=== PATIENT | female | born 1965 | race Caucasian/White ===

== ENCOUNTER 2017-06-29 15:10 | Inpatient (IN) | payer MEDICARE, MEDICAID ==
[~2017-06-29] VITALS: Ht 167.6 cm; Wt 75.0 kg
[~2017-06-29 15:10] MED LIST: ESTR0.5T PO; [UNRECOGNIZED DRUG - CODE] PO
[2017-06-29 16:15] VITALS: BP 154/101
[2017-06-29] MEDS ORDERED: PARO20TA24 PO (17:01)
[2017-06-29 17:55] VITALS: BP 155/102
[2017-06-29] MEDS: AmLODIPine BESYLATE 5 MG TABLET PO SCH (19:12)
[2017-06-29] MEDS ORDERED: ACETAMINOPHEN 325 MG TABLET PO PRN (21:00)
[2017-06-29 21:10] VITALS: BP 138/88
[2017-06-29] MEDS: ZOLPIDEM TARTRATE 10 MG TABLET PO PRN (21:14)
[2017-06-30 06:35] VITALS: BP 135/85
[2017-06-30 07:42] LABS: BASOPHILS % (AUTO) 0.3 % (0.0-2.0); EOSINOPHILS % (AUTO) 2.5 % (1.0-6.0); HEMATOCRIT 38.3 % (36-46); HEMOGLOBIN 12.8 g/dL (12.0-16.0); LYMPHOCYTES # (AUTO) 1.2 K/uL (1.0-4.8); LYMPHOCYTES % (AUTO) 25.3 % (22.0-44.0); MEAN CORPUSCULAR HEMOGLOBIN 31.2 pg (26.0-34.0); MEAN CORPUSCULAR HGB CONC 33.5 G/dL (31.0-37.0); MEAN CORPUSCULAR VOLUME 93 fL (80-100); MONOCYTES # (AUTO) 0.4 K/uL (0.1-1.0); MONOCYTES % (AUTO) 8.8 % (2.0-9.0); NEUTROPHILS % (AUTO) 63.1 % (40.0-70.0); PLATELET COUNT (AUTO) 152 K/uL (150-450); RED BLOOD CELL COUNT(AUTO) 4.12 MIL/uL (4.00-5.20); RED CELL DISTRIBUTION WIDTH 14.2 % (11.5-14.5)
[2017-06-30 07:56] LABS: ALANINE AMINOTRANSFERASE 28 U/L (12-78); ALBUMIN 3.4 g/dL (3.4-5.0); ALKALINE PHOSPHATASE 66 U/L (46-116); ANION GAP 3 mmol/L (8-16); ASPARTATE AMINOTRANSFERASE 26 U/L (15-37); BILIRUBIN,TOTAL 0.5 mg/dL (0.1-1.0); CALCIUM, TOTAL 8.7 mg/dL (8.8-10.5); CARBON DIOXIDE 33 mmol/L (22-29); CHLORIDE 108 mmol/L (98-107); CHOL/HDL RATIO 2.5 (3.9-5.7); CHOLESTEROL 137 mg/dL (131-200); GLOMERULAR FILTR. RATE CALC > 60 mL/min (>60); GLUCOSE,RANDOM 90 mg/dL (70-110); HDL CHOLESTEROL 55 mg/dL (40-60); LDL CHOL (CALC.) 69 mg/dL (0-130); POTASSIUM 4.7 mmol/L (3.5-5.1); SODIUM SERUM 144 mmol/L (136-145); THYROID STIMULATING HORMONE 1.06 uIU/mL (0.36-3.74); TOTAL PROTEIN, SERUM 6.6 g/dL (6.4-8.2); TRIGLYCERIDES 63 mg/dL (15-150); UREA NITROGEN, BLOOD 17 mg/dL (7-18)
[2017-06-30 08:30] VITALS: BP 135/96
[2017-06-30] MEDS: AmLODIPine BESYLATE 5 MG TABLET PO SCH (08:51)
[2017-06-30] MEDS: IBUPROFEN 400 MG TABLET PO PRN ×2 (09:03→21:24)
[2017-06-30 09:22] LABS: HEMOGLOBIN A1C 5.3 % (4.5-6.2)
[2017-06-30 10:00] VITALS: BP 128/69
[2017-06-30] MEDS: CITALOPRAM HYDROBROMIDE 20 MG TABLET PO SCH (13:00)
[2017-06-30 16:30] VITALS: BP 148/94
[2017-06-30] MEDS: ZOLPIDEM TARTRATE 10 MG TABLET PO PRN (21:24)
[2017-06-30 21:25] VITALS: BP 142/89
[2017-07-01 00:47] VITALS: BP 126/75
[2017-07-01 04:05] VITALS: BP 140/92
[2017-07-01] MEDS: LORazepam 2 MG TABLET PO PRN (04:08)
[2017-07-01] MEDS: CITALOPRAM HYDROBROMIDE 20 MG TABLET PO SCH (08:39)
[2017-07-01] MEDS: AmLODIPine BESYLATE 5 MG TABLET PO SCH (08:39)
[2017-07-01 08:48] VITALS: BP 114/64
[2017-07-01 11:07] VITALS: BP 124/72
[2017-07-01] MEDS: IBUPROFEN 400 MG TABLET PO PRN (11:07)
[2017-07-01 16:21] VITALS: BP 138/88
[2017-07-01] MEDS: QUEtiapine FUMARATE 25 MG TABLET PO SCH (20:16)
[2017-07-02 06:58] VITALS: BP 127/85
[2017-07-02 08:31] VITALS: BP 127/71
[2017-07-02] MEDS: AmLODIPine BESYLATE 5 MG TABLET PO SCH (08:50)
[2017-07-02] MEDS: CITALOPRAM HYDROBROMIDE 20 MG TABLET PO SCH (08:50)
[2017-07-02] MEDS ORDERED: CITA20TA9 PO (09:20)
[2017-07-02] MEDS ORDERED: AMLO-511 PO (09:20)
[2017-07-02] MEDS ORDERED: QUET25TA PO (09:20)
[2017-07-02] MEDS: LORazepam 2 MG TABLET PO PRN (17:02)
[2017-07-02 17:38] VITALS: BP 124/79
[2017-07-02] MEDS: QUEtiapine FUMARATE 25 MG TABLET PO SCH (20:44)
[2017-07-02] MEDS: ZOLPIDEM TARTRATE 10 MG TABLET PO PRN (21:35)
[2017-07-03 01:35] VITALS: BP 120/90
[2017-07-03] MEDS: CITALOPRAM HYDROBROMIDE 20 MG TABLET PO SCH (08:42)
[2017-07-03] MEDS: AmLODIPine BESYLATE 5 MG TABLET PO SCH (08:42)
[2017-07-03 08:52] VITALS: BP 120/85
[2017-07-03] MEDS ORDERED: *NON-FORMULARY MED [ENTER DRUG, DOSE, FREQ IN COMMENTS] CLINICAL SCH (09:15)
[2017-07-03] MEDS: LEFLUNOMIDE 10 MG TAB PO SCH (12:05)
[2017-07-03] MEDS: HYDROXYCHLOROQUINE SULFATE 200 MG TABLET PO SCH (12:05)
[2017-07-03 13:30] VITALS: BP 143/89
[2017-07-03 14:06] VITALS: BP 122/78
[2017-07-03] MEDS: IBUPROFEN 400 MG TABLET PO PRN (14:06)
[2017-07-03] MEDS: LORazepam 2 MG TABLET PO PRN (16:00)
[2017-07-03 16:05] VITALS: BP 143/89
[2017-07-03 17:01] VITALS: BP 138/82
[2017-07-03] MEDS: QUEtiapine FUMARATE 25 MG TABLET PO SCH (20:07)
[2017-07-04 06:28] VITALS: BP 118/76
[2017-07-04] MEDS: CYANOCOBALAMIN 100 MCG TABLET PO SCH (08:36)
[2017-07-04] MEDS: CALCIUM OYSTER SHELL 500 MG TABLET PO SCH (08:36)
[2017-07-04] MEDS: MULTIVITAMINS WITH MINERALS, THERAPEUTIC TABLET PO SCH (08:36)
[2017-07-04] MEDS: CITALOPRAM HYDROBROMIDE 20 MG TABLET PO SCH (08:36)
[2017-07-04] MEDS: AmLODIPine BESYLATE 5 MG TABLET PO SCH (08:36)
[2017-07-04] MEDS: LEFLUNOMIDE 10 MG TAB PO SCH (08:36)
[2017-07-04] MEDS: HYDROXYCHLOROQUINE SULFATE 200 MG TABLET PO SCH (08:36)
[2017-07-04 08:40] VITALS: BP 123/67
[2017-07-04] MEDS: LORazepam 2 MG TABLET PO PRN ×2 (08:45→19:03)
[2017-07-04] MEDS ORDERED: PROMETHAZINE HCL 25 MG/ML VIAL IM ONE (14:00)
[2017-07-04 16:42] VITALS: BP 137/88
[2017-07-04] MEDS ORDERED: ONDANSETRON HCL 4 MG/2 ML VIAL IM PRN (17:30)
[2017-07-04] MEDS: ONDANSETRON HCL 4 MG TABLET PO PRN (18:52)
[2017-07-04] MEDS: QUEtiapine FUMARATE 25 MG TABLET PO SCH (20:30)
[2017-07-05 06:09] VITALS: BP 108/67
[2017-07-05 08:22] VITALS: BP 110/71
[2017-07-05 08:23] LABS: ANION GAP 8 mmol/L (8-16); CALCIUM, TOTAL 8.5 mg/dL (8.8-10.5); CARBON DIOXIDE 29 mmol/L (22-29); CHLORIDE 104 mmol/L (98-107); CREATININE 0.64 mg/dL (0.60-1.30); GLOMERULAR FILTR. RATE CALC > 60 mL/min (>60); GLUCOSE,RANDOM 83 mg/dL (70-110); LIPASE 110 U/L (73-393); POTASSIUM 4.1 mmol/L (3.5-5.1); SODIUM SERUM 141 mmol/L (136-145); UREA NITROGEN, BLOOD 20 mg/dL (7-18)
[2017-07-05] MEDS: CALCIUM OYSTER SHELL 500 MG TABLET PO SCH (09:11)
[2017-07-05] MEDS: HYDROXYCHLOROQUINE SULFATE 200 MG TABLET PO SCH (09:11)
[2017-07-05] MEDS: AmLODIPine BESYLATE 5 MG TABLET PO SCH (09:11)
[2017-07-05] MEDS: CYANOCOBALAMIN 100 MCG TABLET PO SCH (09:11)
[2017-07-05] MEDS: MULTIVITAMINS WITH MINERALS, THERAPEUTIC TABLET PO SCH (09:11)
[2017-07-05] MEDS: CITALOPRAM HYDROBROMIDE 20 MG TABLET PO SCH (09:11)
[2017-07-05] MEDS: LEFLUNOMIDE 10 MG TAB PO SCH (09:11)
[2017-07-05] MEDS: ONDANSETRON HCL 4 MG TABLET PO PRN ×2 (12:17→20:30)
[2017-07-05 16:32] VITALS: BP 122/89
[2017-07-05] MEDS: QUEtiapine FUMARATE 25 MG TABLET PO SCH (20:31)
[2017-07-05] MEDS: ZOLPIDEM TARTRATE 10 MG TABLET PO PRN (20:31)
[2017-07-06 05:46] VITALS: BP 116/66
[2017-07-06 08:27] VITALS: BP 116/78
[2017-07-06] MEDS: CITALOPRAM HYDROBROMIDE 20 MG TABLET PO SCH (08:39)
[2017-07-06] MEDS: AmLODIPine BESYLATE 5 MG TABLET PO SCH (08:39)
[2017-07-06] MEDS: HYDROXYCHLOROQUINE SULFATE 200 MG TABLET PO SCH (08:39)
[2017-07-06] MEDS: CALCIUM OYSTER SHELL 500 MG TABLET PO SCH (08:39)
[2017-07-06] MEDS: CYANOCOBALAMIN 100 MCG TABLET PO SCH (08:39)
[2017-07-06] MEDS: LEFLUNOMIDE 10 MG TAB PO SCH (08:39)
[2017-07-06] MEDS: MULTIVITAMINS WITH MINERALS, THERAPEUTIC TABLET PO SCH (08:39)
[2017-07-06] MEDS: ONDANSETRON HCL 4 MG TABLET PO PRN ×2 (08:40→21:14)
[2017-07-06] MEDS ORDERED: TraZODone HCL 50 MG TABLET PO PRN (12:15)
[2017-07-06 16:43] VITALS: BP 115/79
[2017-07-06] MEDS: IBUPROFEN 400 MG TABLET PO PRN (16:43)
[2017-07-06] MEDS: QUEtiapine FUMARATE 25 MG TABLET PO SCH (21:14)
[2017-07-07 01:41] VITALS: BP 111/65
[2017-07-07 05:34] VITALS: BP 122/98
[2017-07-07] MEDS: LORazepam 2 MG TABLET PO PRN (05:45)
[2017-07-07 08:23] VITALS: BP 113/65
[2017-07-07] MEDS ORDERED: LEFL10TA15 PO (09:36)
[2017-07-07] MEDS ORDERED: CALC1TAB15 PO (09:36)
[2017-07-07] MEDS ORDERED: HYDR200T4 PO (09:36)
[2017-07-07] MEDS ORDERED: CYAN100 PO (09:36)
[2017-07-07] MEDS: AmLODIPine BESYLATE 5 MG TABLET PO SCH (09:46)
[2017-07-07] MEDS: LEFLUNOMIDE 10 MG TAB PO SCH (09:46)
[2017-07-07] MEDS: CITALOPRAM HYDROBROMIDE 20 MG TABLET PO SCH (09:46)
[2017-07-07] MEDS: MULTIVITAMINS WITH MINERALS, THERAPEUTIC TABLET PO SCH (09:47)
[2017-07-07] MEDS: CALCIUM OYSTER SHELL 500 MG TABLET PO SCH (09:47)
[2017-07-07] MEDS: CYANOCOBALAMIN 100 MCG TABLET PO SCH (09:47)
[2017-07-07] MEDS: HYDROXYCHLOROQUINE SULFATE 200 MG TABLET PO SCH (09:47)
== END 2017-07-07 10:26 | disposition home or self-care (01) | DRG 885 ==
LOC: B2X 16:12
PROVIDERS: ADMIT Psychiatry & Neurology Child & Adolescent Psychiatry; ATTEND Psychiatry & Neurology Child & Adolescent Psychiatry
DX: F33.2 Major depressive disorder, recurrent severe without psychotic features (principal); D64.9 Anemia, unspecified; F17.210 Nicotine dependence, cigarettes, uncomplicated; F60.3 Borderline personality disorder; M06.9 Rheumatoid arthritis, unspecified; Z90.710 Acquired absence of both cervix and uterus; Z98.84 Bariatric surgery status; Z88.0 Allergy status to penicillin; Z88.5 Allergy status to narcotic agent; Z79.899 Other long term (current) drug therapy; Z90.49 Acquired absence of other specified parts of digestive tract
CPT/HCPCS: 83036; 84443; J2550; Q0162